=== PATIENT | female | born 1955 | race Asian ===

== ENCOUNTER → 2017-07-28 15:56 | Outpatient (CLI) | payer OTHER, SELFPAY ==
--- NOTE | 2017-07-28 15:59 | DI.MRI.S_ITS ---
PROCEDURE: MR KNEE LT WO CON INDICATIONS: LEFT KNEE PAIN TECHNIQUE: Noncontrast sagittal PD fast spin echo and T2 fast spin echo with fat saturation, sagittal 3-D FLASH with fat saturation; coronal T1 spin echo and PD fast spin echo with fat saturation, and axial PD fast spin echo with fat saturation through the knee. COMPARISON: None. FINDINGS: Image quality: Diagnostic. Bones and joint: There is no acute fracture or dislocation. No suspicious osseous lesions are evident. There is a small moderate-sized knee joint effusion without significant fluid extending into a Velasco's cyst. Moderate tricompartmental degenerative changes of the knee are most pronounced within the medial compartment with small to moderate-sized full thickness defects of the hyaline articular cartilage, irregularity of the articular cortical bone and underlying degenerative cystic change along the medial femoral condyle. Small developing marginal osteophytes are noted within all 3 compartments of the knee. There is heterogeneity and mild irregularity of the head articular cartilage within the patellofemoral and lateral tibiofemoral compartments. Areas of degenerative cystic change involving the patella are noted. There also degenerative cystic change is evident along the central aspect of the lateral tibial plateau related to defects in the hyaline articular cartilage. Cruciate ligaments: The anterior and posterior cruciate ligaments are intact. ACL thickening probably is related to scarring from previous partial thickness injury. Menisci: There is degenerative signal noted involving the medial meniscus. No discrete meniscal tear is identified. There is low moderate grade partial-thickness tearing involving posterior root of the lateral meniscus. There is complete avulsion of the anterior attachment of the lateral meniscus. Extrusion of the body of the lateral meniscus is present with a probable displaced fragment from the anterior horn extending into the adjacent lateral gutter. Medial structures: The medial collateral ligament is intact. The semimembranosus tendon insertion is intact. The imaged portions of the pes anserinus tendons are unremarkable. No significant fluid is contained within the pes anserinus bursa. Lateral structures: The popliteal tendon is intact. The lateral collateral ligament proper (fibular collateral ligament) and the proximal tibiofibular ligaments are intact. The distal aspect of the biceps femoris tendon and the iliotibial band are intact. Anterior structures: The quadriceps and patellar tendons are intact. There is slight increased signal involving the proximal patellar tendon. There is edema within the prepatellar soft tissues. There also is edema within the infrapatellar fat pad. There is no significant edema in the infrapatellar fat pad. IMPRESSION: 1. Moderate tricompartmental degenerative changes of the knee. 2. Anterior lateral meniscal root avulsion with additional areas of complex tearing through the body and posterior horn. 3. Probable scarring of the anterior cruciate ligament. 4. Small to moderate-sized knee joint effusion. 5. Possible mild patellar tendinopathy. Prepatellar fluid may represent bursitis, in the correct clinical setting. Dictated by: Jewel Ayers M.D. on 07/28/2017 at 16:11 Approved by: Jewel Ayers M.D. on 07/28/2017 at 16:19
== END ==
PROVIDERS: Visit Provider Family Medicine
DX: M17.12 Unilateral primary osteoarthritis, left knee (principal); S83.282A Other tear of lateral meniscus, current injury, left knee, initial encounter; M25.462 Effusion, left knee
CPT/HCPCS: 73721

== ENCOUNTER → 2019-05-12 12:59 | Outpatient (CLI) | payer MEDICARE, OTHER, SELFPAY ==
--- NOTE | 2019-05-12 | DI.MG.S_ITS ---
BILATERAL DIGITAL SCREENING MAMMOGRAM 3D/2D WITH CAD: 05/12/2019 CLINICAL: Routine screening. Family history of breast cancer. Comparison is made to exams dated: 05/11/2018 mammogram, 05/11/2017 mammogram, and 05/10/2016 mammogram - [facility]. The tissue of both breasts is heterogeneously dense. This may lower the sensitivity of mammography. Current study was also evaluated with a Computer Aided Detection (CAD) system. No significant masses, calcifications, or other findings are seen in either breast. There has been no significant interval change. IMPRESSION: NEGATIVE There is no mammographic evidence of malignancy. A 1 year screening mammogram is recommended. This exam was interpreted at Station ID: [id number]. NOTE: For mammograms, a report in lay terms will be sent to the patient. Approximately 15% of breast malignancies will not be visualized mammographically. In the management of a palpable breast mass, a negative mammogram must not discourage biopsy of a clinically suspicious lesion. Electronically Signed By: Maddison isabel/mari:05/12/2019 13:33:44 letter sent: Normal Exam ACR BI-RADS Category 1: Negative 3341F
== END ==
PROVIDERS: Referring Provider Family Medicine; Visit Provider Family Medicine
DX: Z12.31 Encounter for screening mammogram for malignant neoplasm of breast (principal); Z80.3 Family history of malignant neoplasm of breast
CPT/HCPCS: 77063; 77067

== ENCOUNTER → 2020-05-14 10:49 | Outpatient (CLI) | payer MEDICARE, OTHER, SELFPAY ==
--- NOTE | 2020-05-14 | DI.MG.S_ITS ---
BILATERAL DIGITAL SCREENING MAMMOGRAM 3D/2D WITH CAD: 05/14/2020 CLINICAL: Routine screening. Family history of breast cancer. Comparison is made to exams dated: 05/12/2019 mammogram - [facility], 05/11/2018 mammogram, and 05/11/2017 mammogram - [facility]. The tissue of both breasts is heterogeneously dense. This may lower the sensitivity of mammography. Current study was also evaluated with a Computer Aided Detection (CAD) system. No significant masses, calcifications, or other findings are seen in either breast. There has been no significant interval change. IMPRESSION: NEGATIVE There is no mammographic evidence of malignancy. A 1 year screening mammogram is recommended. This exam was interpreted at Station ID: [id number]. NOTE: For mammograms, a report in lay terms will be sent to the patient. Approximately 15% of breast malignancies will not be visualized mammographically. In the management of a palpable breast mass, a negative mammogram must not discourage biopsy of a clinically suspicious lesion. Electronically Signed By: Wojciech keita/mari:05/14/2020 11:28:50 letter sent: Normal Exam ACR BI-RADS Category 1: Negative 3341F
== END ==
PROVIDERS: PCP Family Medicine; Referring Provider Family Medicine; Visit Provider Family Medicine
DX: Z12.31 Encounter for screening mammogram for malignant neoplasm of breast (principal); Z80.3 Family history of malignant neoplasm of breast
CPT/HCPCS: 77063; 77067

== ENCOUNTER → 2021-05-16 10:22 | Outpatient (CLI) | payer MEDICARE, OTHER, SELFPAY ==
--- NOTE | 2021-05-16 10:25 | DI.MG.S_ITS ---
BILATERAL DIGITAL SCREENING MAMMOGRAM 3D/2D WITH CAD: 05/16/2021 CLINICAL: Routine screening. Family history of breast cancer. Comparison is made to exams dated: 05/14/2020 mammogram, 05/12/2019 mammogram - [facility], 05/11/2018 mammogram, 05/11/2017 mammogram, and 05/10/2016 mammogram - [facility]. The tissue of both breasts is heterogeneously dense. This may lower the sensitivity of mammography. Current study was also evaluated with a Computer Aided Detection (CAD) system. No significant masses, calcifications, or other findings are seen in either breast. There has been no significant interval change. IMPRESSION: NEGATIVE There is no mammographic evidence of malignancy. A 1 year screening mammogram is recommended. This exam was interpreted at Station ID: [id number]. NOTE: For mammograms, a report in lay terms will be sent to the patient. Approximately 15% of breast malignancies will not be visualized mammographically. In the management of a palpable breast mass, a negative mammogram must not discourage biopsy of a clinically suspicious lesion. Electronically Signed By: Aly [email or web address]/mari:05/18/2021 09:36:36 letter sent: Normal Exam ACR BI-RADS Category 1: Negative 3341F
== END ==
PROVIDERS: PCP Family Medicine; Referring Provider Family Medicine; Visit Provider Family Medicine
DX: Z12.31 Encounter for screening mammogram for malignant neoplasm of breast (principal); Z80.3 Family history of malignant neoplasm of breast
CPT/HCPCS: 77063; 77067